=== PATIENT | male | born 1950 | race Hispanic/Latino ===

== ENCOUNTER → 2019-03-03 | Day surgery (SDC) | payer MEDICARE ==
[2019-03-01 10:09] LABS: BASOPHILS % 0.5 % (0.0-1.0); EOSINOPHILS # (AUTO) 0.3 (0.0-0.4); EOSINOPHILS % 3.5 % (0.0-6.0); HEMATOCRIT 28.1 % (38.2-49.6); HEMOGLOBIN 9.4 g/dL (14.0-18.0); LYMPHOCYTES # (AUTO) 2.4 (1.0-3.2); LYMPHOCYTES % 32.4 % (18.0-39.1); MEAN CORPUSCULAR HGB CONC 33.5 g/dL (31-35); MEAN CORPUSCULAR VOLUME 98.6 fL (81-99); MONOCYTES # (AUTO) 0.5 (0.2-0.8); MONOCYTES % 6.1 % (4.4-11.3); NEUTROPHILS # (AUTO) 4.2 (2.1-6.9); NEUTROPHILS % 57.2 % (38.7-80.0); PLATELET COUNT 157 x10e3/uL (140-360); RED BLOOD COUNT 2.85 x10e6/uL (4.3-5.7); RED CELL DISTRIBUTION WIDTH 12.8 % (11.7-14.4)
[2019-03-01 10:33] LABS: INR 0.94; PROTHROMBIN TIME 13.1 seconds (11.9-14.5)
[2019-03-01 10:41] LABS: ALBUMIN 3.2 g/dL (3.5-5.0); ALBUMIN/GLOBULIN RATIO 0.7 (0.8-2.0); CREATININE, SERUM 1.24 mg/dL (0.72-1.25)
[~2019-03-03] VITALS: Ht 182.9 cm; Wt 90.7 kg
[2019-03-03] VITALS (7 sets, daily range): BP systolic 140–166; BP diastolic 61–77
[~2019-03-03] MED LIST: ASPIR 8181 MG PO; ATORVASTATIN CA10 MG PO; AUGMENTIN 875-1 EACH PO; CARVEDILOL3.125 MG PO; CLOPIDOGREL75 MG PO; FENTANYL CITRATE/PF 100MCG/2 ML INJ ONE; FINASTERIDE5 MG PO; FLOMAX0.4 MG PO; FUROSEMIDE40 MG PO; HEPARIN SOD (PORCINE) 1000 UNIT/ML 30ML ONE; HEPARIN SOD/SOD CHLORIDE 2,000 ML ONE; IOPAMIDOL 300MG/ML 100 ML INFUS..BTL IV ONE; LANTUS 3ML100 UNITS/ SC; LIDOCAINE HCL 2% LOCAL 20 ML VIAL ONE; LISINOPRIL2.5 MG PO; MIDAZOLAM HCL 2 MG/2 ML VIAL ONE; NITROGLYCERIN/D5W 200 MCG/ML 250 ML ONE; SODIUM CHLORIDE 0.9% 1000ML 1,000 ML ONE; SPIRONOLACTONE25 MG PO; VITAMIN B-121000 MCG PO
--- OUTSIDE RECORDS SUMMARY | 2019-03-03 07:30 | XMS REPORT | Summary of Care ---
Author Author IRA MADDEN M.D. Organization Unknown Address Unknown Phone Unavailable Care Team Providers Care Cable Maker Name Role Phone IRA MADDEN M.D. Unavailable Unavailable EMILY P.A. REETIAGO Unavailable Unavailable CELIA VERA MD Unavailable Unavailable Functional Status Name Dates Details Functional status health issues are not documented Status: Name Dates Details Cognitive status health issues are not documented Status: Problems Name Dates Details Closed displaced intertrochanteric fracture of right femur with routine healing (V54.13, S72.141D) Status: Active Medications Name Dates Details Vitamin D (Ergocalciferol) 32446 UNIT Oral Capsule TAKE 1 CAPSULE WEEKLY. Quantity: 8 EMILY P.A., REEJU * Start : 05-Mar-2018 Active Vitamin D (Ergocalciferol) 17619 UNIT Oral Capsule TAKE 1 CAPSULE WEEKLY. * Quantity: 12 Refills: 0 IRA MADDEN M.D. * Start : 05-Mar-2018 Active Meloxicam 7.5 MG Oral Tablet TAKE 1 TABLET DAILY WITH FOOD. * Quantity: 30 Refills: 1 EMILY P.A., REEJU * Start : 22-Apr-2018 Active Allergies and Adverse Reactions Name Dates Details Ibuprofen TABS (Allergy) Status: Active Procedures Procedure Dates Details Procedures not documented Immunization Name Dates Details Immunizations not documented Social History Name Dates Details Unknown if ever smoked Vital Signs Date Test Result Details [id number] Height 72 in Status: Weight 230 lb Status: Body Mass Index Calculated 31.19 kg/m2 Status: Body Surface Area Calculated 2.26 m2 Status: Results Date Description Value Details [id number] [U] XRAY FEMUR 2 VWS RIGHT 03165 XR FEMUR 2 VWS RIGHT Images acquired, not reported on this accession number. Plan of Care Name Dates Details Planned Observations Planned Goals not documented Interventions Provided Medication Changes* Meloxicam 7.5 MG Oral Tablet - Start Labs/Procedures/Imaging* [U] XRAY FEMUR 2 VWS RIGHT 66401; Done: 22 Apr 2018 Plan* pain med prn * continue calcium and vit d supplement * PT: WBAT RLE * mobic rx given - aware of ibuprofen reaction, pt states he has taken advil with no reaction. Advised pt to try one - if no reaction continue med , if pt has reaction to go to nearest ER * RTC in 6 weeks if symptoms does not improve otherwise return to clinic prn. * D/w Dr. Madden. Instructions Name Dates Details Instructions not documented Encounters Appointment; IRA MADDEN M.D. Encounter Diagnosis: Problem not documented On: 21-Jan-2018 11:30 Appointment; GINA DIAZ P.A. Encounter Diagnosis: Problem not documented On: 05-Mar-2018 13:45 Appointment; IRA MADDEN M.D. Encounter Diagnosis: Problem not documented On: 22-Apr-2018 10:00
--- NOTE | 2019-03-03 10:19 | NUR ---
1019 Bedside report received from Amber OLIVO.Identifer x2. Peripheral Dr Mcgee.No fix Alert oriented and appropriate, PERRLA, respirations even and unlabored to room air. Pulses x4 extremities equal and strong. Pedal pulses PT/DP XXXXX and marked. Cap fill brisk < 3 sec. RT vscade site w/o s/s hematoma Dressing dry and intact. PPx4 Pt/DT Palpable. Skin warm and dry integrity appears IV 20g left hand presents healthy w/o s/s of infiltration or complaint. Abdomen soft and supple. pt offered toileting, denies need to urinate or defecate. No personal affects with patient. Family Venkat Brother cell [phone]. Pt and family verbalizes understanding of POC. Rees of importance f/o care of Urologist for [place] removal issues. Provided with past Urologist Dr Cool number. Also encourage to obtain routine PCP .Last documented DR Deluca in hospital. Denies c/o Cp or SOB NO gross issues pain pallor pressure or dysrhythmia. ds/delaney
--- NOTE | 2019-03-03 12:00 | NUR ---
1200 Handoff to Heather Franks Rn Stable Vs and EKg No gross issues pain pallor pressure or dysrhythmia. Rt Groin [place] site w/o s/s hematoma Dressing dry and intact. PPx4 Pt/ Dp. Iv site w/o s/s infiltration. ds/rn
--- NOTE | 2019-03-03 13:11 | NUR ---
Patient discharge instructions given to him and brother. Patient discharge information included information on pain, closure device information discharge instruction sheet and medication reconciliation sheet as well. Patient IV remove and assisted dressing. Patient wheeled and of facility and handed over to brothers care. Nydia nurse RN discussed patient quesada information and quesada care teaching with patient as well. Patient neurovascular checks performed at all vital sign checks and not issues noted.
--- NOTE | 2019-03-05 02:58 | Operative Report ---
DATE OF PROCEDURE: 03/03/2019 SURGEON: Wilfred Mcgee DO PROCEDURES PERFORMED: 1. Conscious sedation, 30 minutes. 2. Abdominal aortography. 3. Third-order peripheral angiography. PREPROCEDURE DIAGNOSIS: Peripheral arterial disease. POSTPROCEDURE DIAGNOSIS: Mild peripheral arterial disease. ESTIMATED BLOOD LOSS: Less than 20 mL. SPECIMENS REMOVED: None. PROCEDURE IN DETAIL: After informed consent was obtained, the patient was brought to the cardiac catheterization laboratory in a fasting, nonsedated state. Bilateral groins were prepped and draped in usual sterile fashion. A 2% lidocaine was instilled over the right anterior groin for local anesthesia. Using micropuncture needle, the right common femoral artery was accessed via modified Seldinger technique and a 5-Irish sheath was placed. Next, diagnostic abdominal aortography was performed using Omni Flush catheter. This catheter was then taken up and over and placed in third order position and digital subtraction angiography images were performed. The patient tolerated procedure well with no immediate complications and transported back to his room in stable condition. PROCEDURAL FINDINGS: 1. The infrarenal abdominal aorta and bilateral iliac systems are patent. 2. The left lower extremity has patent vessels throughout the leg. The distal posterior tibial at the plantar arch has mild diffuse disease with no significant obstruction. 3. The right lower extremity has patent vessels with mild luminal irregularities. DICTATION ENDS HERE Wilfred Mcgee DO BM/MODL /[id number]
== END | disposition home or self-care (01) ==
LOC: CATH LAB 07:20 → EDBD 09:00
PROVIDERS: ATTEND Internal Medicine Cardiovascular Disease
DX: I73.9 Peripheral vascular disease, unspecified (principal); R07.2 Precordial pain; I25.2 Old myocardial infarction; E13.69 Other specified diabetes mellitus with other specified complication; Z88.8 Allergy status to other drugs, medicaments and biological substances; Z79.02 Long term (current) use of antithrombotics/antiplatelets; Z79.82 Long term (current) use of aspirin; Z86.2 Personal history of diseases of the blood and blood-forming organs and certain disorders involving the immune mechanism; Z86.73 Personal history of transient ischemic attack (TIA), and cerebral infarction without residual deficits
CPT/HCPCS: 36247; 36415; 75625; 75716; 80053; 85025; 85610; C1760; C1769 ×2; J1644; J2001; J2250; J3010; J7030; Q9967